=== PATIENT | male | born 1995 | race Caucasian/White ===

== ENCOUNTER 2018-06-29 11:01 | Emergency (ER) | payer BC ==
[~2018-06-29] VITALS: Ht 182.9 cm; Wt 79.4 kg
[2018-06-29 11:15] VITALS: BP 117/75
[2018-06-29] MEDS ORDERED: Ketorolac 30mg Inj IV ONE (11:45)
[2018-06-29 12:15] LABS: BASOPHILS % (AUTO) 0.4 % (0.0-2.0); EOSINOPHILS % (AUTO) 1.1 % (0.0-3.0); HEMATOCRIT 45.9 % (42.0-52.0); HEMOGLOBIN 15.9 G/DL (14.2-18.0); MEAN CORPUSCULAR VOLUME 82 FL (80-99); MONOCYTES % (AUTO) 7.7 % (1.0-10.0); NEUTROPHILS % (AUTO) 76.7 % (45.0-75.0); PLATELET COUNT 245 K/UL (150-450); RED BLOOD COUNT 5.59 M/UL (4.70-6.10); RED CELL DISTRIBUTION WIDTH 10.5 % (11.6-14.8); WHITE BLOOD COUNT 13.1 K/UL (4.8-10.8)
[2018-06-29 12:25] LABS: ANION GAP 10 mmol/L (5-15); BLOOD UREA NITROGEN 16 mg/dL (7-18); CALCIUM 9.5 MG/DL (8.5-10.1); CARBON DIOXIDE 28 MMOL/L (21-32); CHLORIDE 105 MMOL/L (98-107); CREATININE 1.1 MG/DL (0.55-1.30); SODIUM 143 MMOL/L (136-145)
[2018-06-29 12:31] LABS: ALANINE AMINOTRANSFERASE 22 U/L (12-78); ALBUMIN 4.3 G/DL (3.4-5.0); ALBUMIN/GLOBULIN RATIO 1.2 (1.0-2.7); ALKALINE PHOSPHATASE 99 U/L (46-116); ASPARTATE AMINO TRANSFERASE 15 U/L (15-37); BILIRUBIN,TOTAL 0.6 MG/DL (0.2-1.0)
--- NOTE | 2018-06-29 12:35 | Diagnostic Imaging Report ---
Indication: TMJ pain on the right side Technique: Continuous helical transaxial imaging of the maxillofacial structures obtained without intravenous contrast administration. Coronal 2-D reformats were also obtained. Study obtained in a Siemens sensation [address] Automatic Exposure Control was utilized. Total Dose length Product (DLP): [address] Dose Index Volume (CTDIvol): 0.15, 28.19 mGy Comparison: None Findings: The temporomandibular appear normal bilaterally. The study was obtained with the mouth in the closed position. The mandibular condyle fossa are well aligned bilaterally. No erosion or arthritic changes are identified. Soft tissues adjacently appear unremarkable. The mandible is unremarkable. There is no evidence of an acute fracture. Paranasal sinuses and mastoids are clear. Soft tissues are unremarkable. IMPRESSION: Negative CT evaluation of the temporomandibular joints bilaterally in the closed position. No dislocation or arthritis identified. The CT scanner at [facility] is accredited by the [employer] and the scans are performed using dose optimization techniques as appropriate to a performed exam including Automatic Exposure control.
--- NOTE | 2018-06-29 14:06 | Emergency Room Report ---
History of Present Illness General Chief Complaint: Pain Source: Patient Present Illness HPI Patient presents with severe left jaw pain. He states it's painful to chew. He denies any fevers. He feels pain also underneath the jaw on the left-hand side. The pain is also significant in the temporomandibular joint. According to his girlfriend he grinds his teeth at night. There is no trauma. This started's 3 days ago and has been constant. He feels his teeth don't align. He has been able to swallow. He denies any fevers or chills. Is no dental pain on that side. He's been taking Motrin with some help. No rashes. More jaw pain than headache. No NVD. No anxiety. Denies major medical problems. 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 Nursing Documentation: PMH: Agreed; PSxH: Agreed Nursing Documentation-PMH Past Medical History: No History, Except For Review of Systems All Other Systems: negative except mentioned in HPI Physical Exam Vital Signs Date Time Temp Pulse Resp B/P (MAP) Pulse Ox O2 Delivery O2 Flow Rate FiO2 06/29/18 11:10 97.5 66 15 117/75 97 Room Air Sp02 EP Interpretation: reviewed, normal General Appearance: well appearing, no apparent distress, GCS 15 Head: normocephalic Eyes: bilateral eye normal inspection, bilateral eye PERRL ENT: normal pharynx, moist mucus membranes, other - states teeth not aligned, no gum disease, unable to fully open mouth, no peritonsilar abscess Neck: full range of motion - min tenderness turn head to L, supple, tender - L anterior, no fluctuance, tender beloe jaw at angle Respiratory: lungs clear, normal breath sounds Cardiovascular #1: regular rate, rhythm Cardiovascular #2: 2+ radial (R) Gastrointestinal: normal inspection, normal bowel sounds, non tender, no mass, non-distended Musculoskeletal: back normal, gait/station normal, normal range of motion Neurologic: alert, oriented x3, grossly normal Psychiatric: mood/affect normal Skin: normal inspection, warm/dry Medical Decision Making Diagnostic Impression: Primary Impression: Jaw pain ER Course Patient presents with left jaw pain. Differential includes TMJ dislocation, TMJ inflammation, teratoma mandibular abscess, dental abscess amongst others. Evaluation will be with labs, and CT maxillofacial bones. Treatment here with IV Toradol. White count is slightly elevated. Sedimentation rate normal. CMP essentially normal. A CT reveals no jaw dislocation and the closed position and no evidence of TMJ disease. Patient still with pain but slightly better. Able to swallow. Due to the leukocytosis Augmentin is begun. A call was made to Dario Hooper MD who had referred the patient here. In addition a call was made to Reji Galloway M.D. The patient was referred to ENT urgently. Dr. Hooper stated he was also going to ensure prompt re-evaluation also. Patient stable for outpatient observation and treatment. He was advised to return if pain not controlled or worsening. Laboratory Tests Test 06/29/18 11:57 06/29/18 13:15 Prothrombin Time 10.4 SEC (9.30-11.50) Prothrombin Time INR 1.0 (0.9-1.1) PTT 34 SEC (23-33) H Sodium Level 143 MMOL/L (136-145) Potassium Level 4.0 MMOL/L (3.5-5.1) Chloride Level 105 MMOL/L (98-107) Carbon Dioxide Level 28 MMOL/L (21-32) Anion Gap 10 mmol/L (5-15) Blood Urea Nitrogen 16 mg/dL (7-18) Creatinine 1.1 MG/DL (0.55-1.30) Estimate Glomerular Filtration Rate > 60 mL/min (>60) Glucose Level 73 MG/DL (74-106) L Calcium Level 9.5 MG/DL (8.5-10.1) Total Bilirubin 0.6 MG/DL (0.2-1.0) Aspartate Amino Transferase (AST) 15 U/L (15-37) Alanine Aminotransferase (ALT) 22 U/L (12-78) Alkaline Phosphatase 99 U/L (46-116) Total Protein 8.0 G/DL (6.4-8.2) Albumin 4.3 G/DL (3.4-5.0) Globulin 3.7 g/dL Albumin/Globulin Ratio 1.2 (1.0-2.7) White Blood Count 13.1 K/UL (4.8-10.8) H Red Blood Count 5.59 M/UL (4.70-6.10) Hemoglobin 15.9 G/DL (14.2-18.0) Hematocrit 45.9 % (42.0-52.0) Mean Corpuscular Volume 82 FL (80-99) Mean Corpuscular Hemoglobin 28.4 PG (27.0-31.0) Mean Corpuscular Hemoglobin Concent 34.6 G/DL (32.0-36.0) Red Cell Distribution Width 10.5 % (11.6-14.8) L Platelet Count 245 K/UL (150-450) Mean Platelet Volume 7.0 FL (6.5-10.1) Neutrophils (%) (Auto) 76.7 % (45.0-75.0) H Lymphocytes (%) (Auto) 14.0 % (20.0-45.0) L Monocytes (%) (Auto) 7.7 % (1.0-10.0) Eosinophils (%) (Auto) 1.1 % (0.0-3.0) Basophils (%) (Auto) 0.4 % (0.0-2.0) Erythrocyte Sedimentation Rate 6 MM/HR (0-15) CT/MRI/US Diagnostic Results CT/MRI/US Diagnostic Results : Imaging Test Ordered: maxilofacial Impression Findings: The temporomandibular appear normal bilaterally. The study was obtained with the mouth in the closed position. The mandibular condyle fossa are well aligned bilaterally. No erosion or arthritic changes are identified. Soft tissues adjacently appear unremarkable. The mandible is unremarkable. There is no evidence of an acute fracture. Paranasal sinuses and mastoids are clear. Soft tissues are unremarkable. IMPRESSION: Negative CT evaluation of the temporomandibular joints bilaterally in the closed position. No dislocation or arthritis identified. Last Vital Signs Date Time Temp Pulse Resp B/P (MAP) Pulse Ox O2 Delivery O2 Flow Rate FiO2 06/29/18 14:49 97.5 66 15 121/86 97 Room Air Status: improved Disposition: HOME, SELF-CARE Condition: Improved Scripts Ibuprofen* (MOTRIN*) 600 Mg Tablet 600 MG ORAL Q6H PRN for For Pain, #20 TAB Prov: Jose Mccollum MD 06/29/18 Tramadol Hcl* (ULTRAM*) 50 Mg Tablet 50 MG ORAL Q6H PRN for For Pain, #10 TAB 0 Refills Prov: Jose Mccollum MD 06/29/18 Amoxicillin/Potassium Clav 500-125 Tablet* (AUGMENTIN 500-125 TABLET*) 1 Each Tablet 1 TAB ORAL THREE TIMES A DAY, #20 TAB Prov: Jose Mccollum MD 06/29/18 Referrals: NOT CHOSEN IPA/,REFERRING (PCP) Jose Mccollum MD Jun 29, 2018 14:06
[2018-06-29] MEDS ORDERED: AUGMENTIN 500-1 EACH ORAL (14:09)
[2018-06-29] MEDS ORDERED: TRAMADOL HCL50 MG ORAL (14:09)
[2018-06-29] MEDS ORDERED: IBUPROFEN600 MG ORAL (14:09)
[2018-06-29 14:49] VITALS: BP 121/86
== END 2018-06-29 14:51 | disposition home or self-care (01) ==
LOC: EMR 11:50
DX: R68.84 Jaw pain (principal); F17.200 Nicotine dependence, unspecified, uncomplicated
CPT/HCPCS: 36415; 70486; 80053; 85025; 85610; 85651; 85730; 96374; 99284; J1885